=== PATIENT | male | born 1960 | race Caucasian/White ===

== ENCOUNTER 2025-03-27 08:58 | Emergency (ER) | payer SELFPAY ==
[~2025-03-27] VITALS: Ht 193 cm; Wt 96.0 kg
[2025-03-27 09:05] VITALS: O2SAT 100
[2025-03-27 09:12] VITALS: BP 137/80; PULSE 79; RESP 16; TEMP 36.7; O2SAT 100
== END 2025-03-27 10:13 | disposition left against medical advice (07) ==
LOC: ER 08:58 → EDBEDREQ 09:28 → ER 10:13 → CMPBEDREQ 11:29
DX: R07.89 Other chest pain (principal)
CPT/HCPCS: 93005; 99281